=== PATIENT | male | born 1945 | race Caucasian/White ===

== ENCOUNTER → 2017-02-18 | Outpatient (CLI) | payer MEDICARE ==
[~2017-02-18] MED LIST: ASPIRIN CHEWABL81 MG PO; NORVASC 5 MG TAB5 MG PO
== END ==
LOC: KOH-I 11:41
DX: R31.29 Other microscopic hematuria (principal); K57.90 Diverticulosis of intestine, part unspecified, without perforation or abscess without bleeding; N20.0 Calculus of kidney
CPT/HCPCS: 74176

== ENCOUNTER → 2017-03-08 | Outpatient (CLI) | payer MEDICARE | LOC: KOH-I 12:14 | DX: R05 Cough (principal) | CPT/HCPCS: 71020 ==

== ENCOUNTER → 2017-03-16 | Outpatient (CLI) | payer MEDICARE | LOC: CT 08:10 | DX: R91.1 Solitary pulmonary nodule (principal); J43.9 Emphysema, unspecified; R91.8 Other nonspecific abnormal finding of lung field; I65.29 Occlusion and stenosis of unspecified carotid artery | CPT/HCPCS: 71260; J7050; Q9962 ==

== ENCOUNTER → 2020-10-02 | Outpatient (CLI) | payer MEDICARE ==
[~2020-10-02] MED LIST changes: +LOPRESSOR 25 MG25 MG PO
== END ==
LOC: KOH-I 11:01
DX: Z12.2 Encounter for screening for malignant neoplasm of respiratory organs (principal); F17.210 Nicotine dependence, cigarettes, uncomplicated
CPT/HCPCS: G0297

== ENCOUNTER → 2020-11-25 | Outpatient (CLI) | payer MEDICARE | LOC: HEART 5 16:13 | DX: R94.31 Abnormal electrocardiogram [ECG] [EKG] (principal); I25.10 Atherosclerotic heart disease of native coronary artery without angina pectoris; N18.30 Chronic kidney disease, stage 3 unspecified; R97.20 Elevated prostate specific antigen [PSA]; J44.9 Chronic obstructive pulmonary disease, unspecified; F17.210 Nicotine dependence, cigarettes, uncomplicated | CPT/HCPCS: 94010; 94729 ==

== ENCOUNTER 2021-05-26 20:24 | Inpatient (IN) | payer MEDICARE, MEDICAID ==
[~2021-05-26] VITALS: Ht 167.6 cm; Wt 90.7 kg
[~2021-05-26 20:24] MED LIST changes: -ASPIRIN CHEWABL81 MG PO
[2021-05-26 23:18] LABS: RED BLOOD COUNT 5.06 M/UL (4.20-5.50); WHITE BLOOD COUNT 5.5 K/UL (4.5-11.0)
[2021-05-27] MEDS ORDERED: ASPIRIN EC81 MG PO (10:42)
[2021-05-28 06:08] LABS: HEMOGLOBIN 15.3 gm/dl (14.0-17.5); RED BLOOD COUNT 4.9 M/UL (4.20-5.50)
[2021-05-28 06:10] LABS: WHITE BLOOD COUNT 10.7 K/UL (4.5-11.0)
[2021-05-30 05:53] LABS: BUN/CREATININE RATIO 22 (0-10)
[2021-05-30] MEDS ORDERED: VENTOLIN HFA 66.7 GM INH (16:36)
[2021-05-30] MEDS ORDERED: ELIQUIS2.5 MG PO (16:36)
== END 2021-05-31 13:15 | disposition home or self-care (01) | DRG 177 ==
LOC: ER1 20:24 → M/S 05-27 06:16 → CDU 05-27 06:16 → M/S 05-27 22:00
PROVIDERS: Internal Medicine; Physician Assistant Medical; ADMIT Internal Medicine
PROC: 8E0ZXY6 Isolation (ICD-10-PCS; 2021-05-27)
PROC: XW033G6 Introduction of REGN-COV2 Monoclonal Antibody into Peripheral Vein, Percutaneous Approach, New Technology Group 6 (ICD-10-PCS; 2021-05-27)
PROC: 3E0333Z Introduction of Anti-inflammatory into Peripheral Vein, Percutaneous Approach (ICD-10-PCS; principal; 2021-05-28)
PROC: XW0 New Technology, Anatomical Regions, Introduction (ICD-10-PCS; 2021-05-28)
PROC: XW033E5 Introduction of Remdesivir Anti-infective into Peripheral Vein, Percutaneous Approach, New Technology Group 5 (ICD-10-PCS; 2021-05-28)
DX: U07.1 COVID-19 (principal); J96.01 Acute respiratory failure with hypoxia; J12.82 Pneumonia due to coronavirus disease 2019; N17.9 Acute kidney failure, unspecified; E87.1 Hypo-osmolality and hyponatremia; N28.1 Cyst of kidney, acquired; J44.9 Chronic obstructive pulmonary disease, unspecified; E16.1 Other hypoglycemia; T38.0X5A Adverse effect of glucocorticoids and synthetic analogues, initial encounter; E86.0 Dehydration; R59.9 Enlarged lymph nodes, unspecified; D69.59 Other secondary thrombocytopenia; I10 Essential (primary) hypertension; F17.210 Nicotine dependence, cigarettes, uncomplicated; Z90.49 Acquired absence of other specified parts of digestive tract; Z82.49 Family history of ischemic heart disease and other diseases of the circulatory system
CPT/HCPCS: 36415; 36600; 71045; 71275; 80048; 80053; 82803; 85025; 94760; 99285; J1100; J1650; J7030; M0243; Q9965; U0002

== ENCOUNTER → 2021-12-01 | Outpatient (CLI) | payer MEDICARE ==
[~2021-12-01] MED LIST changes: +ASPIRIN EC81 MG PO; +ELIQUIS2.5 MG PO; +VENTOLIN HFA 66.7 GM INH
== END ==
LOC: KOH-I 14:23
DX: F17.210 Nicotine dependence, cigarettes, uncomplicated (principal); R91.1 Solitary pulmonary nodule
CPT/HCPCS: 71271

== ENCOUNTER → 2022-05-26 | Outpatient (CLI) | payer MEDICARE | LOC: KOH-I 10:30 | DX: R91.8 Other nonspecific abnormal finding of lung field (principal) | CPT/HCPCS: 71250 ==

== ENCOUNTER → 2022-06-18 | Outpatient (CLI) | payer MEDICARE | LOC: CT 08:45 | DX: C61 Malignant neoplasm of prostate (principal); N20.0 Calculus of kidney | CPT/HCPCS: 36415; 82565; 84520; Q9967 ==

== ENCOUNTER → 2022-06-24 | Outpatient (CLI) | payer MEDICARE | LOC: NM 08:20 | DX: C61 Malignant neoplasm of prostate (principal) | CPT/HCPCS: 78306; A9503 ==